=== PATIENT | female | born 1995 | race Caucasian/White ===

== ENCOUNTER 2016-12-19 14:21 | Emergency (ER) | payer BC ==
--- NOTE | 2016-12-19 15:19 | ED ORDER SUMMARY ---
..... Patient: KANCHAN GARCIA OrderSheet [facility] VisitID: [id number] [address] [place] [address] 21y, F Registration Date/Time: 12/19/2016 ORDER SHEET Weight: 63.5 kg Allergies: Decadron, Promethazine , Sumatriptan, Benadryl, PredniSONE, Topamax GENERAL ORDERS: MEDICATION ORDERS: IV FLUIDS: Dilaudid IV 1 mg (HIGH ALERT MEDICATION, NOW) (14:41 12/19/2016 [facility]) (Ack 14:42 KPage-Kuchan R.N.) (15:01 KPage-Kuchan R.N.) Zofran IV 4 mg (NOW) (14:41 12/19/2016 [facility]) (Ack 14:42 KPage-Kuchan R.N.) (15:01 KPage-Kuchan R.N.) IV NS : initial bolus 1000 mL (1000 mL/hr), then TKO - (NOW) (14:41 12/19/2016 [facility]) (Ack 14:42 KPage-Kuchan R.N.) (15:00 KPage-Kuchan R.N.) ORDER SHEET NOTES: [Electronically signed by Ricci Bridges DO (17:49 12/19/2016)] [Electronically signed by Tea Espinosa R.N. (23:40 12/22/2016)] [Electronically locked/signed by Tea Espinosa R.N. (23:40 12/22/2016)]
--- NOTE | 2016-12-19 15:19 | ED CLINICAL REPORT ---
Clinical Report - Physicians/Mid Levels [facility] [address] [place] [address] 12/19/2016 14:23 Patient: KANCHAN GARCIA Time Seen: 14:28. Arrived- By private vehicle. Historian- patient and mother. HISTORY OF PRESENT ILLNESS Chief Complaint: MIGRAINE HEADACHE. Is still present. This started today. It was gradual in onset and has been waxing/waning. Onset during light activity. It is described as similar to previous headaches and throbbing. Located in the frontal region. No neck pain. At its maximum, severity described as moderate. When seen in the E.D., severity described as moderate. Modifying factors: worsened by bright light and noise; relieved by rest, quiet room and dark room. The patient has had photophobia and nausea. She has had vomiting. The vomiting has occurred several times. No blood-tinged emesis or frankly bloody emesis. No numbness or weakness. Similar symptoms previously: Recent medical care: Not recently seen/assessed. REVIEW OF SYSTEMS No fever, sinus pressure, chest pain, difficulty breathing or abdominal pain. No diarrhea, pain with urination, skin rash or back pain. All systems otherwise negative, except as recorded above. PAST HISTORY History of chronic migraine headaches. Irritable bowel syndrome. Urinary tract infection. Surgeries: No history of previous surgery. SOCIAL HISTORY Never smoker. No alcohol use or drug use. Is a local resident. FAMILY HISTORY History of migraine headaches. ADDITIONAL NOTES The nursing notes have been reviewed. PHYSICAL EXAM Vital Signs: 12/19/2016 14:30 BP: 110/88. HR: 74. RR: 15. O2 saturation: 100%. Temp: 97.8 F. Pain level now: 6/10. Appearance: Alert. Patient in mild distress. Head: No tenderness to palpation/percussion over the sinuses or temporal artery tenderness. Eyes: Mild photophobia present. Pupils equal, round and reactive to light. Eyes normal inspection. ENT: Pharynx normal. No pharyngeal erythema or tonsillar exudate. Neck: Normal inspection. Neck supple. No meningeal signs or carotid bruit. CVS: Normal heart rate and rhythm. Heart sounds normal. Pulses normal. Respiratory: No respiratory distress. Breath sounds normal. Abdomen: Soft and nontender. Back: Normal inspection. Skin: Skin warm and dry. Normal skin color. No rash. Normal skin turgor. Extremities: Extremities exhibit normal ROM. No lower extremity edema. Neuro: Oriented X 3. Alert. Mood/affect normal. Speech normal. Cranial nerves normal (as tested). No cerebellar findings. No motor deficit. No sensory deficit. Reflexes normal. Reflex exam: right biceps 2+, left biceps 2+, right patellar 2+, left patellar 2+, right Achilles 2+ and left Achilles 2+. LABS, X-RAYS, AND EKG Pulse Oximetry: 12/19/2016 14:30 O2 saturation: 100%. (FIO2 - room air). Interpretation: normal. PROGRESS AND PROCEDURES Course of Care: Normal Saline 1 liter IVPB given. Zofran 4 mg IVP given. Dilaudid 1 mg IVP given. There is nothing new or different about her ORTEGA today - just more nausea than usual and more persistent - same location, quality and character of the pain Patient is stable. Physical exam findings are improved. Symptoms much better. 12/19/2016 15:57 BP: 104/70. HR: 66. RR: 15. O2 saturation: 100%. Pain level now: 06/19. Patient/family counseled. Old ED records reviewed. Disposition: Discharged. Condition: stable and improved. CLINICAL IMPRESSION Acute and chronic migraine headache without aura- poorly controlled. No status migrainosus. INSTRUCTIONS Do not work for two days. Warnings: Further evaluation is necessary. It is very important to follow up with a physician. SEDATIVE MEDICATION: You were given sedative medication during your visit. Do not drive or operate dangerous machinery. CONTROLLED SUBSTANCE WARNINGS. GENERAL WARNINGS: Return or contact your physician immediately if your condition worsens or changes unexpectedly, if not improving as expected, or if other problems arise. Prescription Medications: Zofran (orally disintegrating tablets) 4 mg: take 1-2 orally every 8 hours as needed for nausea and vomiting. Dispense ten (10). No refill. Substitution is permissible. Oxycodone/APAP 5 mg/325 mg: take 1-2 tablets orally every 8 hours as needed for pain. Dispense ten (10). No refill. Follow-up: Follow up with your doctor philorrow. (Electronically signed by Ricci Bridges DO 12/19/2016 17:49)
--- NOTE | 2016-12-19 15:19 | ED NURSING NOTES ---
Clinical Report - Nurses [facility] [address] [place] [address] 12/19/2016 14:23 Patient: KANCHAN GARCIA TRIAGE Triage time 14:30 Dec 19 2016. Chief Complaint: MIGRAINE HEADACHE and (pt with hx of migraine that began yesterday, pt took vicodin this morning and then began vomiting, pt then took ondansetron, pt reports 'i'm just unable to get it under control this time"). Alert. MADELINE COMA SCORE: [place] Coma Scale: 15- eyes open spontaneously (4); best verbal response- oriented x 4 (5); best motor response- obeys commands (6). --14:40 Tea Espinosa R.N. 14:30 12/19/16. BP: 110/88. HR: 74. RR: 15. O2 saturation: 100%. Temp: 97.8 F. Pain level now: 11/17. --14:40 Tea Espinosa R.N. Weight: 63.5 kg. Height/Length: 72 inches. BMI: 19. --14:39 Tea Espinosa R.N. Medication/allergy information source: the patient. --14:40 Tea Espinosa R.N. Allergies Decadron. --14:33 Tea Espinosa R.N. Promethazine . --14:33 Tea Espinosa R.N. Sumatriptan. --14:33 Tea Espinosa R.N. Benadryl. --14:34 Tea Espinosa R.N. PredniSONE. --14:34 Tea Espinosa R.N. Topamax. --14:34 Tea Espinosa R.N. History Arrived by private vehicle. Historian: patient. Accompanied by family. This started yesterday. Onset. (1 days ago). She has had nausea and vomiting. No weakness or numbness. Treatment CARDIOLOGY TECHNOLOGIST: (vicodin ondansetron). PAST MEDICAL HX: Immunizations: up-to-date. SOCIAL HX: No infectious disease exposure. No known contact with a sick individual. ABUSE ASSESSMENT: No report of abuse. SELF HARM ASSESSMENT: A self harm assessment was performed. The patient answered "no" to the question "Do you have thoughts of harming or killing yourself?". FALL RISK ASSESSMENT: Fall risk assessment completed. No fall risk identified. NUTRITIONAL RISK ASSESSMENT: The nutritional risk assessment revealed no deficiencies. FUNCTIONAL ASSESSMENT: Functional assessment: no impairments noted. LEARNING NEEDS ASSESSMENT: The learning needs assessment revealed no barriers. SKIN INTEGRITY ASSESSMENT: Skin integrity risk assessment completed. No skin integrity risk identified. --14:40 Tea Espinosa R.N. PROBLEMS: Chronic Headache. Back Pain. Irritable Bowel Syndrome. Headache. UTI - Urinary Tract Infection. Tetanus Status. Immunizations. LNMP - Last Normal Menstrual Period. --14:35 Tea Espinosa R.N. Sprain [Resolved]. --14:35 Tea Espinosa R.N. ADDITIONAL SURGERIES: no known surgeries. Interventions ID and allergy band on patient. To treatment room. --14:40 Tea Espinosa R.N. PHYSICAL ASSESSMENT Ambulatory to room. Patient gowned. GENERAL / NEURO / PSYCH: Alert. Oriented X 4. Appears in pain. Speech within normal limits. HEENT: No facial asymmetry noted. Pupils equal, round and reactive to light. RESPIRATORY: Respirations not labored. CVS: Capillary refill less than 2 seconds. GI / : Abdomen nontender. SKIN: Skin is warm. --14:40 Tea Espinosa R.N. NURSING PROGRESS NOTES Pulse oximeter and NIBP monitor placed on patient. Reassurance given. Call light placed in reach. Side rails up. Bed placed in lowest position. Brakes of bed on. ( MD at bedside during triage). --14:41 Tea Espinosa R.N. 14:50 12/19/2016 Site #1 started via IV in the right antecubital space with an 20g angiocath; one attempt. Blood drawn: rainbow set. Labeled in the presence of the patient and held. Saline lock flushed with saline. --15:00 Tea Espinosa R.N. 14:51 12/19/2016 Zofran (Ondansetron HCl) IVP 4 mg given. via site #1. Allergies verified and confirmed 5 rights. IV patency established. IV site checked: no pain, redness, or swelling. IV flushed thoroughly pre- and post-medication administration. IVP given by RN. --15:01 Tea Espinosa R.N. 14:55 12/19/2016 Started bag #1 1000 mL IV Fluids IV NS (Saline); at 1000 mL/hr via site #1. Allergies verified and confirmed 5 rights. IV patency established. IV site checked: no pain, redness, or swelling. IV flushed thoroughly pre- and post-medication administration. --15:00 Tea Espinosa R.N. 14:56 12/19/2016 Dilaudid (HYDROmorphone HCl PF) IVP 1 mg given. via site #1. Allergies verified, confirmed 5 rights and sedative warning given to the patient and patient's family. IV patency established. IV site checked: no pain, redness, or swelling. IV flushed thoroughly pre- and post-medication administration. IVP given by RN. --15:01 Tea Espinosa R.N. 15:01 12/19/16. BP: 115/73. HR: 69. RR: 15. O2 saturation: 98%. Pain level now: 06/19. --15:02 Tea Espinosa R.N. Call light placed in reach. Side rails up x 1. Bed placed in lowest position. Brakes of bed on. ( ivf infusing as ordered, pt with pain down to 1/10 from 11/17, mom at bedside). --15:02 Tea Espinosa R.N. 15:12 12/19/16. BP: 109/77. HR: 74. RR: 15. O2 saturation: 100%. --15:12 Tea Espinosa R.N. Call light placed in reach. --15:12 Tea Espinosa R.N. 15:36 12/19/2016 Zofran IVP Response: no adverse reaction pain is improving. Symptoms have improved the patient feels better. --15:46 Tea Espinosa R.N. 15:36 12/19/2016 Dilaudid IVP Response: no adverse reaction pain is improving. Symptoms have improved the patient feels better. --15:46 Tea Espinosa R.N. 15:41 12/19/2016 IV Fluids IV NS Discontinued: infused. Total amount infused: 1000 mL. IV patency established. IV site checked: no pain, redness, or swelling. IV flushed thoroughly. --15:46 Tea Espinosa R.N. DISPOSITION / DISCHARGE 15:47 12/19/2016 Site #1 removed upon discharge. --15:57 Tea Espinosa R.N. Condition at departure: improved. No learning barriers present. Discharge instructions provided and reviewed with the patient and parent. Reviewed medication(s) side effects, precautions, dosing and course information. Prescription(s) given to the patient. Patient verbalized understanding. Written instructions provided in Wallisian. The patient was discharged by the physician. She was discharged home and accompanied by parent. She left the Emergency Department ambulatory and via private vehicle. Parent driving. ( pt provided crackers and soda pop upon dispo, pt ambulatory to lobby with steady gait, given rx and f/u.). --15:59 Tea Espinosa R.N. 15:57 12/19/16. BP: 104/70. HR: 66. RR: 15. O2 saturation: 100%. Temp: deferred. Pain level now: 06/19. --15:59 Tea Espinosa R.N. Locked/Released at 12/22/2016 23:40 by Tea Espinosa R.N.
--- NOTE | 2016-12-19 15:19 | ED ORDER SUMMARY ---
..... Patient: KANCHAN GARCIA OrderSheet [facility] VisitID: [id number] [address] [place] [address] 21y, F Registration Date/Time: 12/19/2016 ORDER SHEET Weight: 63.5 kg Allergies: Decadron, Promethazine , Sumatriptan, Benadryl, PredniSONE, Topamax GENERAL ORDERS: MEDICATION ORDERS: IV FLUIDS: Dilaudid IV 1 mg (HIGH ALERT MEDICATION, NOW) (14:41 12/19/2016 [facility]) (Ack 14:42 KPage-Kuchan R.N.) (15:01 KPage-Kuchan R.N.) Zofran IV 4 mg (NOW) (14:41 12/19/2016 [facility]) (Ack 14:42 KPage-Kuchan R.N.) (15:01 KPage-Kuchan R.N.) IV NS : initial bolus 1000 mL (1000 mL/hr), then TKO - (NOW) (14:41 12/19/2016 [facility]) (Ack 14:42 KPage-Kuchan R.N.) (15:00 KPage-Kuchan R.N.) ORDER SHEET NOTES: [Electronically signed by Ricci Bridges DO (17:49 12/19/2016)] [Electronically signed by Tea Espinosa R.N. (23:40 12/22/2016)] [Electronically locked/signed by Tea Espinosa R.N. (23:40 12/22/2016)]
--- NOTE | 2016-12-22 23:41 | ED DISCHARGE INSTRUCTIONS ---
Patient: KANCHAN GARCIA General Instructions [facility] VisitID: [id number] [place] [address] 21y, F Registration Date/Time: 12/19/2016 Acute and chronic migraine headache without aura- poorly controlled. No status migrainosus. INSTRUCTIONS Do not work for two days. Warnings: Further evaluation is necessary. It is very important to follow up with a physician. SEDATIVE MEDICATION: You were given sedative medication during your visit. Do not drive or operate dangerous machinery. CONTROLLED SUBSTANCE WARNINGS. GENERAL WARNINGS: Return or contact your physician immediately if your condition worsens or changes unexpectedly, if not improving as expected, or if other problems arise. Prescription Medications: Zofran (orally disintegrating tablets) 4 mg: take 1-2 orally every 8 hours as needed for nausea and vomiting. Dispense ten (10). No refill. Substitution is permissible. Oxycodone/APAP 5 mg/325 mg: take 1-2 tablets orally every 8 hours as needed for pain. Dispense ten (10). No refill. Follow-up: Follow up with your doctor tomorrow. ADDITIONAL INFORMATION Migraine Headache Migraine headaches are related to changes in blood flow to the brain. This causes throbbing or constant pain on one or both sides of the head. The pain may last from a few hours to several days. There is usually nausea, vomiting, sensitivity to light and sound, and blurred vision. A migraine attack may be triggered by emotional stress, hormone changes during the menstrual cycle, oral contraceptives, alcohol use, certain foods containing tyramine, eye strain, weather changes, missing meals, or too little or too much sleep. Home Care For This Headache: 1) If you were given pain medicine for this headache, do not drive yourself home . Arrange for a ride, instead. When you get home, try to sleep. You should feel much better when you wake up. 2) Migraine headaches may improve with an ice pack on the forehead or at the base of the skull. Heat to the back of your neck may relieve any neck spasm. 3) Drink only clear liquids or eat a very light diet to avoid nausea/vomiting until symptoms improve. Preventing Future Headaches: 1) Pay attention to those factors that seem to trigger your headache. Try to avoid them when you can. If you have frequent headaches, it is useful to keep a diary of what you were doing, feeling or eating in the hours before each attack. Show this to your doctor to help find the cause of your headaches. a) If you feel that stress is a factor in your headaches, look at the sources of stress in your life. Find ways to release the build-up of those stresses by using regular exercise, relaxation methods (yoga, meditation), bio-feedback or simply taking time-out for yourself. For more information about this, consult your doctor or go to a local bookstore and review books and tapes on this subject. b) Tyramine is a substance present in the following foods : chocolate, yogurt, all cheeses except cottage cheese and cream cheese. smoked or pickled fish and meat (including king, caviar, bologna, pepperoni, salami), liver, avocados, bananas, figs, raisins, and red wine. Be aware that these foods may trigger a migraine in some persons. Try taking these foods out of your diet for 1-2 months to see if this reduces headache frequency. Treating Future Attacks: 1) At the first sign of a headache, take time out if possible. Find a quiet, dark, comfortable place to sit or lie down. Let yourself relax or sleep. 2) An ice pack on the forehead or area of greatest pain may help. If you are having muscle spasm and tightness of the neck, a heating pad and massage to this area may be helpful. 3) If you have been prescribed a medicine to stop a migraine headache, use this at the very first warning sign of the headache (aura or initial pain) for best results. Follow Up with your doctor if the headache is not better within the next 24 hours. If you have frequent headaches you should discuss a treatment plan with your primary care doctor. Ask if you can have medicine to take at home the next time you get a bad headache. Poorly controlled chronic headaches may require a referral to a neurologist (headache specialist). Get Prompt Medical Attention if any of the following occur: Your head pain gets worse, or does not improve within 24 hours Repeated vomiting (cant keep liquids down) Sinus or ear or throat pain (not already reported) Fever of 100.4 F (38 C) or higher, or as directed by your healthcare provider Stiff neck Extreme drowsiness, confusion or fainting Dizziness, vertigo (dizziness with spinning sensation) Weakness of an arm or leg or one side of the face Difficulty with speech or vision Ondansetron Oral disintegrating tablet What is this medicine? ONDANSETRON (on MARILU se mary) is used to treat nausea and vomiting caused by chemotherapy. It is also used to prevent or treat nausea and vomiting after surgery. How should I use this medicine? These tablets are made to dissolve in the mouth. Do not try to push the tablet through the foil backing. With dry hands, peel away the foil backing and gently remove the tablet. Place the tablet in the mouth and allow it to dissolve, then swallow. While you may take these tablets with water, it is not necessary to do so. Talk to your charter school executive director regarding the use of this medicine in children. Special care may be needed. What side effects may I notice from receiving this medicine? Side effects that you should report to your doctor or health personal care aid as soon as possible: allergic reactions like skin rash, itching or hives, swelling of the face, lips, or tongue breathing problems dizziness fast or irregular heartbeat feeling faint or lightheaded, falls fever and chills swelling of the hands and feet tightness in the chest Side effects that usually do not require medical attention (report to your doctor or health personal care aid if they continue or are bothersome): constipation or diarrhea headache What may interact with this medicine? Do not take this medicine with any of the following medications: -apomorphine -cisapride -dofetilide -dronedarone -pimozide -thioridazine -ziprasidone This medicine may also interact with the following medications: -carbamazepine -phenytoin -rifampicin -tramadol -other medicines that prolong the QT interval (cause an abnormal heart rhythm) What if I miss a dose? If you miss a dose, take it as soon as you can. If it is almost time for your next dose, take only that dose. Do not take double or extra doses. Where should I keep my medicine? Keep out of the reach of children. Store between 2 and 30 degrees C (36 and 86 degrees F). Throw away any unused medicine after the expiration date. What should I tell my health care provider before I take this medicine? They need to know if you have any of these conditions: heart disease history of irregular heartbeat liver disease low levels of magnesium or potassium in the blood an unusual or allergic reaction to ondansetron, granisetron, other medicines, foods, dyes, or preservatives or trying to get breast-feeding What should I watch for while using this medicine? Check with your doctor or health personal care aid as soon as you can if you have any sign of an allergic reaction. Oxycodone Hydrochloride, Acetaminophen Oral tablet What is this medicine? ACETAMINOPHEN; OXYCODONE (a set a VITA shiraz fen; ox i KOE done) is a pain reliever. It is used to treat mild to moderate pain. How should I use this medicine? Take this medicine by mouth with a full glass of water. Follow the directions on the prescription label. Take your medicine at regular intervals. Do not take your medicine more often than directed. Talk to your charter school executive director regarding the use of this medicine in children. Special care may be needed. Patients over 65 years old may have a stronger reaction and need a smaller dose. What side effects may I notice from receiving this medicine? Side effects that you should report to your doctor or health personal care aid as soon as possible: allergic reactions like skin rash, itching or hives, swelling of the face, lips, or tongue breathing difficulties, wheezing confusion light headedness or fainting spells severe stomach pain yellowing of the skin or the whites of the eyes Side effects that usually do not require medical attention (report to your doctor or health personal care aid if they continue or are bothersome): dizziness drowsiness nausea vomiting What may interact with this medicine? alcohol antihistamines barbiturates like amobarbital, butalbital, butabarbital, methohexital, pentobarbital, phenobarbital, thiopental, and secobarbital benztropine drugs for bladder problems like solifenacin, trospium, oxybutynin, tolterodine, hyoscyamine, and methscopolamine drugs for breathing problems like ipratropium and tiotropium drugs for certain stomach or intestine problems like propantheline, homatropine methylbromide, glycopyrrolate, atropine, belladonna, and dicyclomine general anesthetics like etomidate, ketamine, nitrous oxide, propofol, desflurane, enflurane, halothane, isoflurane, and sevoflurane medicines for depression, anxiety, or psychotic disturbances medicines for sleep muscle relaxants naltrexone narcotic medicines (opiates) for pain phenothiazines like perphenazine, thioridazine, chlorpromazine, mesoridazine, fluphenazine, prochlorperazine, promazine, and trifluoperazine scopolamine tramadol trihexyphenidyl What if I miss a dose? If you miss a dose, take it as soon as you can. If it is almost time for your next dose, take only that dose. Do not take double or extra doses. Where should I keep my medicine? Keep out of the reach of children. This medicine can be abused. Keep your medicine in a safe place to protect it from theft. Do not share this medicine with anyone. Selling or giving away this medicine is dangerous and against the law. Store at room temperature between 20 and 25 degrees C (68 and 77 degrees F). Keep container tightly closed. Protect from light. This medicine may cause accidental overdose and if it is taken by other adults, children, or pets. Flush any unused medicine down the toilet to reduce the chance of harm. Do not use the medicine after the expiration date. What should I tell my health care provider before I take this medicine? They need to know if you have any of these conditions: brain tumor Crohn's disease, inflammatory bowel disease, or ulcerative colitis drink more than 3 alcohol containing drinks per day drug abuse or addiction head injury heart or circulation problems kidney disease or problems going to the bathroom liver disease lung disease, asthma, or breathing problems an unusual or allergic reaction to acetaminophen, oxycodone, other opioid analgesics, other medicines, foods, dyes, or preservatives or trying to get breast-feeding What should I watch for while using this medicine? Tell your doctor or health personal care aid if your pain does not go away, if it gets worse, or if you have new or a different type of pain. You may develop tolerance to the medicine. Tolerance means that you will need a higher dose of the medication for pain relief. Tolerance is normal and is expected if you take this medicine for a long time. Do not suddenly stop taking your medicine because you may develop a severe reaction. Your body becomes used to the medicine. This does NOT mean you are addicted. Addiction is a behavior related to getting and using a drug for a non-medical reason. If you have pain, you have a medical reason to take pain medicine. Your doctor will tell you how much medicine to take. If your doctor wants you to stop the medicine, the dose will be slowly lowered over time to avoid any side effects. You may get drowsy or dizzy. Do not drive, use machinery, or do anything that needs mental alertness until you know how this medicine affects you. Do not stand or sit up quickly, especially if you are an older patient. This reduces the risk of dizzy or fainting spells. Alcohol may interfere with the effect of this medicine. Avoid alcoholic drinks. There are different types of narcotic medicines (opiates) for pain. If you take more than one type at the same time, you may have more side effects. Give your health care provider a list of all medicines you use. Your doctor will tell you how much medicine to take. Do not take more medicine than directed. Call emergency for help if you have problems breathing. The medicine will cause constipation. Try to have a bowel movement at least every 2 to 3 days. If you do not have a bowel movement for 3 days, call your doctor or health personal care aid. Do not take Tylenol (acetaminophen) or medicines that have acetaminophen with this medicine. Too much acetaminophen can be very dangerous. Many nonprescription medicines contain acetaminophen. Always read the labels carefully to avoid taking more acetaminophen. You have been given the following additional information: Headache, Migraine (Classical) Ondansetron Oral disintegrating tablet Oxycodone Hydrochloride, Acetaminophen Oral tablet Do not work for two days. (Electronically signed by Ricci Bridges DO 12/19/2016 17:49)
--- NOTE | 2016-12-22 23:41 | ED MAR SUMMARY ---
..... Medication Administration Record [facility] [address] [place] [address] Patient: KANCHAN GARCIA Visit ID: [id number] 21y, F Weight: 63.5 kg Height/Length: 72 in BMI: 19 ALLERGIES: Topamax, PredniSONE, Benadryl, Sumatriptan, Promethazine , Decadron Given 14:51 12/19/2016 Tea Espinosa R.N. Medication Administered: ZOFRAN [IVP] (ONDANSETRON HCL), Dose: 4 mg IVP, Site: #1 right AC. Medication Ordered: Zofran IV 4 mg (NOW). Start 14:55 12/19/2016 Tea Espinosa R.N., Stop 15:41 12/19/2016 Tea Espinosa R.N. Medication Administered: IV NS (SALINE), Dose: IV Fluids, Rate: 1000 mL/hr, Dispensed: 1000 mL bag, Site: #1 right AC. Medication Ordered: IV NS : initial bolus 1000 mL (1000 mL/hr), then TKO - (NOW). Given 14:56 12/19/2016 Tea Espinosa R.N. Medication Administered: DILAUDID [IVP] (HYDROMORPHONE HCL PF), Dose: 1 mg IVP, Site: #1 right AC. Medication Ordered: Dilaudid IV 1 mg (HIGH ALERT MEDICATION, NOW).
--- NOTE | 2016-12-22 23:41 | ED MED RECONCILIATION SUMMARY ---
Patient: KANCHAN GARCIA Medication Reconciliation Report [facility] VisitID: [id number] [address] [place] [address] 21y, F Registration Date/Time: 12/19/2016 Weight: 63.5 kg Height/Length: 72 in. BMI: 19.0 ALLERGIES: Benadryl, Decadron, PredniSONE, Promethazine , Sumatriptan, Topamax The patient's Home Medications are listed below: Not obtained. The source(s) of the original Home Medication information: patient The following Medications were given to the patient in the Emergency Department: IV NS IV Fluids bolus 0, then 1000 mL/hr, administered: 12/19/2016 2:55:00 PM Zofran [IVP] IVP 4 mg, administered: 12/19/2016 2:51:00 PM Dilaudid [IVP] IVP 1 mg, administered: 12/19/2016 2:56:00 PM The following Medications were prescribed to the patient: Zofran (orally disintegrating tablets) 4 mg: take 1-2 orally every 8 hours as needed for nausea and vomiting. Dispense ten (10). No refill. Substitution is permissible. -- Ricci Bridges DO Oxycodone/APAP 5 mg/325 mg: take 1-2 tablets orally every 8 hours as needed for pain. Dispense ten (10). No refill. -- Ricci Bridges DO
--- NOTE | 2016-12-22 23:41 | ED MAR SUMMARY ---
..... Medication Administration Record [facility] [address] [place] [address] Patient: KANCHAN GARCIA Visit ID: [id number] 21y, F Weight: 63.5 kg Height/Length: 72 in BMI: 19 ALLERGIES: Topamax, PredniSONE, Benadryl, Sumatriptan, Promethazine , Decadron Given 14:51 12/19/2016 Tea Espinosa R.N. Medication Administered: ZOFRAN [IVP] (ONDANSETRON HCL), Dose: 4 mg IVP, Site: #1 right AC. Medication Ordered: Zofran IV 4 mg (NOW). Start 14:55 12/19/2016 Tea Espinosa R.N., Stop 15:41 12/19/2016 Tea Espinosa R.N. Medication Administered: IV NS (SALINE), Dose: IV Fluids, Rate: 1000 mL/hr, Dispensed: 1000 mL bag, Site: #1 right AC. Medication Ordered: IV NS : initial bolus 1000 mL (1000 mL/hr), then TKO - (NOW). Given 14:56 12/19/2016 Tea Espinosa R.N. Medication Administered: DILAUDID [IVP] (HYDROMORPHONE HCL PF), Dose: 1 mg IVP, Site: #1 right AC. Medication Ordered: Dilaudid IV 1 mg (HIGH ALERT MEDICATION, NOW).
--- NOTE | 2016-12-22 23:41 | ED MED RECONCILIATION SUMMARY ---
Patient: KANCHAN GARCIA Medication Reconciliation Report [facility] VisitID: [id number] [address] [place] [address] 21y, F Registration Date/Time: 12/19/2016 Weight: 63.5 kg Height/Length: 72 in. BMI: 19.0 ALLERGIES: Benadryl, Decadron, PredniSONE, Promethazine , Sumatriptan, Topamax The patient's Home Medications are listed below: Not obtained. The source(s) of the original Home Medication information: patient The following Medications were given to the patient in the Emergency Department: IV NS IV Fluids bolus 0, then 1000 mL/hr, administered: 12/19/2016 2:55:00 PM Zofran [IVP] IVP 4 mg, administered: 12/19/2016 2:51:00 PM Dilaudid [IVP] IVP 1 mg, administered: 12/19/2016 2:56:00 PM The following Medications were prescribed to the patient: Zofran (orally disintegrating tablets) 4 mg: take 1-2 orally every 8 hours as needed for nausea and vomiting. Dispense ten (10). No refill. Substitution is permissible. -- Ricci Bridges DO Oxycodone/APAP 5 mg/325 mg: take 1-2 tablets orally every 8 hours as needed for pain. Dispense ten (10). No refill. -- Ricci Bridges DO
== END 2016-12-19 15:53 | disposition home or self-care (01) ==
LOC: ED SRH 14:21
DX: G43.719 Chronic migraine without aura, intractable, without status migrainosus (principal); Z88.8 Allergy status to other drugs, medicaments and biological substances